=== PATIENT | male | born 2000 | race Caucasian/White ===

== ENCOUNTER 2025-02-17 23:20 | Emergency (ER) | payer OTHER ==
[2025-02-17 23:30] VITALS: TEMP 96.8
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
[2025-02-18] LABS: Absolute Neutrophil Ct (ANC) 10.31 x10^3/uL (1.78-5.38); BASOPHIL % 0.5 % (0.2-1.2); Basophil (Absolute #) 0.07 x10^3/uL (0.01-0.08); Eosinophil % 0.6 % (0.8-7.0); Eosinophil (Absolute #) 0.08 x10^3/uL (0.04-0.54); Hematocrit 42.6 % (40.1-51.0); Hemoglobin 14.2 g/dL (13.7-17.5); IMMATURE GRAN # 0.04 x10^3u/L (0.001-0.031); IMMATURE GRAN % 0.3 % (0.001-0.429); Lymphocyte (Absolute #) 2.34 x10^3/uL (1.32-3.57); Lymphocytes % 17.2 % (21.8-53.1); Mean Cell Volume 86.4 fL (79.0-92.2); Mean Corpuscular Hemoglobin 28.8 pg (25.7-32.2); Mean Corpuscular Hgb Concent. 33.3 g/dL (32.3-36.5); Mean Platelet Volume 9.9 fL (9.4-12.4); Monocyte (Absolute #) 0.78 x10^3/uL (0.30-0.82); Monocytes % 5.7 % (5.3-12.2); Neutrophil % 75.7 % (34.0-67.9); Platelet Count 238 x10^3/uL (163-337); Red Blood Count 4.93 x10^6/uL (4.63-6.08); Red Cell Distribution Width 12.7 % (11.6-14.4); White Blood Count 13.6 x10^3/uL (4.23-9.07)
[2025-02-18 00:15] LABS: ACETAMINOPHEN < 10 ug/ml (10-30); ALBUMIN 5.1 g/dL (3.5-5.0); ALKALINE PHOSPHATASE 96 U/L (38-126); ANION GAP 18.4 MEQ/L (5-15); BLOOD UREA NITROGEN 18 mg/dL (9-20); CHLORIDE 99 mmol/L (98-107); Calcium 9.4 mg/dL (8.4-10.2); Carbon Dioxide 21 mmol/L (22-30); Creatinine 1 0.88 mg/dL (0.66-1.25); EST GLOMERULAR FILTRATION RATE 122.4 ML/MIN; ETHYL ALCOHOL < 10 mg/dL (0-10); Glucose 104 mg/dL (74-106); Potassium 3.4 mmol/L (3.5-5.1); SALICYLATE < 1.0 mg/dL (2-20); SGOT/AST 35 U/L (17-59); SGPT/ALT 18 U/L (0-50); SODIUM 135 mmol/L (135-145)
[2025-02-18 01:58] LABS: Appearance Clear (Clear); Bilirubin Negative (Negative); Blood Negative (Negative); Glucose, Urine Negative (Negative); Ketones Negative (Negative); Leukocyte Esterase Negative (Negative); Nitrite Negative (Negative); Protein,Urine Dip Negative (Negative); Specific Gravity 1.015 (1.005-1.030); Urobilinogen 0.2 mg/dL (0.2)
[2025-02-18 02:11] LABS: Barbiturate,Urine NEGATIVE (NEGATIVE); Benzodiazepine,Urine NEGATIVE (NEGATIVE); Cocaine,Urine NEGATIVE (NEGATIVE); Methadone,Urine NEGATIVE (NEGATIVE); Opiate,Urine NEGATIVE (NEGATIVE); PCP,Urine NEGATIVE (NEGATIVE); THC,Urine POSITIVE (NEGATIVE)
[2025-02-18 02:17] LABS: Bacteria None Seen /HPF (None Seen); Epithelial Cells None Seen /HPF (None Seen); RBC 0-2 /HPF (0-5); WBC 0-2 /HPF (0-5)
[2025-02-18 03:58] LABS: Amphetamine,Urine NEGATIVE (NEGATIVE)
[2025-02-18 06:07] VITALS: PULSE 67
[2025-02-18 06:43] VITALS: O2SAT 98
[2025-02-18 07:05] VITALS: BP 98/58; RESP 18
== END 2025-02-18 09:39 | disposition short-term general hospital (02) ==
LOC: ED 23:20
DX: F29 Unspecified psychosis not due to a substance or known physiological condition (principal); Z79.01 Long term (current) use of anticoagulants; Z79.891 Long term (current) use of opiate analgesic; Z79.899 Other long term (current) drug therapy
CPT/HCPCS: 36415; 80053; 80143; 80179; 80307; 81001; 82077; 85025; 93005; 99284; 99285